=== PATIENT | female | born 1945 | race Caucasian/White ===

== ENCOUNTER 2016-12-08 12:58 | Inpatient (IN) | payer MEDICARE, OTHER ==
[~2016-12-08] VITALS: Ht 167.6 cm; Wt 65.8 kg
[~2016-12-08 12:58] MED LIST: ALBU18HF2 IH; AMLO10TA2 PO; CHLO50TA24 PO; DIPH1TAB28 PO; DONE10TA44 PO; DULO60CA63 PO; GUAI480S10 PO; IMIP50TA7 PO; LISI10TA5 PO; LOPE2TAB25 PO; NAPR500T3 PO; TIOT18CA3 IH
[2016-12-08] MEDS ORDERED: MORPHINE SULFATE INJ 2 MG/ML DISP.SYRIN IV ONE (13:30)
[2016-12-08] MEDS ORDERED: IV NS 0.9% 1,000 ML BAG IV ONE (13:30)
[2016-12-08] MEDS ORDERED: ONDANSETRON HCL/PF 4 MG/2 ML VIAL IVP ONE (13:30)
--- NOTE | 2016-12-08 13:30 | NUR ---
PATIENT BIB [facility], C/O SEVERE HEADACHE. PATIENT ALSO STATING SHE HAS BEEN NAUSEOUS AND HAVING PAIN ON HER SACRAL WOUND. PATIENT IS A/OX 4. BREATHING EVEN AND UNLABORED. VITALS STABLE. EQUAL STRENGTH BILATERALLY. NO NEUROLOGICAL DEFICITS NOTED. SAFETY AND COMFORT MEASURSES IN PLACE. AWAITING MD ORDERS.
[2016-12-08] MEDS ORDERED: MORPHINE SULFATE INJ 4 MG/ML DISP.SYRIN ONE (13:34)
[2016-12-08] MEDS ORDERED: ONDANSETRON HCL/PF 4 MG/2 ML VIAL ONE (13:34)
[2016-12-08 13:45] LABS: BASOPHILS # (AUTO) 0.2 /CMM (0.0-0.2); BASOPHILS % (AUTO) 3.1 % (0.0-2.0); EOSINOPHILS % (AUTO) 0.2 % (0.0-6.0); HEMATOCRIT 39 % (33-45); LYMPHOCYTES # (AUTO) 1.7 /CMM (0.8-4.8); LYMPHOCYTES % (AUTO) 31.3 % (20.0-44.0); MEAN CORPUSCULAR HEMOGLOBIN 32 PG (26.0-33.0); MEAN CORPUSCULAR HGB CONC 34 g/dl (31.0-36.0); MEAN CORPUSCULAR VOLUME 95 fL (82-100); MONOCYTES # (AUTO) 0.5 /CMM (0.1-1.30); MONOCYTES % (AUTO) 9.2 % (2.0-12.0); NEUTROPHILS % (AUTO) 56.2 % (43.0-81.0); PLATELET COUNT (AUTO) 185 /CMM (150-450); RDW COEFFICIENT OF VARIATION 13.5 (11.5-15.0); RED BLOOD CELL COUNT(AUTO) 4.07 MIL/uL (4.0-5.2); WHITE BLOOD COUNT (AUTO) 5.4 K/uL (4.3-11.0)
--- NOTE | 2016-12-08 13:49 | NUR ---
NEW IV STARTED ON RAC, 20 G. BLOOD DRAWN AND SENT TO LAB. PATIENT MEDICATED PER MD ORDERS.
--- NOTE | 2016-12-08 13:50 | NUR ---
URINE SAMPLE COLLECTED, VERBAL ORDER FROM DR LOUIS - SHOAIB SWEET, CALLED LAB
[2016-12-08 13:54] LABS: CALCIUM, SERUM 9.1 mg/dL (8.5-10.1); CARBON DIOXIDE 33 mmol/L (21-32); CHLORIDE 100 mmol/L (98-107); CREATININE 0.7 mg/dL (0.6-1.3); GLUCOSE 89 mg/dL (74-106); POTASSIUM 3.8 mmol/L (3.5-5.1); SODIUM SERUM 138 mmol/L (136-145); UREA NITROGEN, BLOOD 24 mg/dL (7-18)
--- NOTE | 2016-12-08 14:25 | NUR ---
PATIENT TAKEN TO CT VIA STRETCHER.
--- NOTE | 2016-12-08 14:35 | NUR ---
PATIENT RETURNED BACK FROM CT.
[2016-12-08 14:45] LABS: BILIRUBIN,URINE Negative (NEGATIVE); BLOOD, URINE Negative Ery/uL (NEGATIVE); COLOR,URINE Yellow (YELLOW); KETONES,URINE Trace (NEGATIVE); LEUKOCYTE ESTERASE ,URINE Negative (NEGATIVE); NITRITE, URINE Negative (NEGATIVE); PROTEIN,URINE Negative (NEGATIVE); UGLUCOSE Negative (NEGATIVE); UROBILINOGEN,URINE 0.2 EU/dL (0.2)
[2016-12-08 14:46] LABS: APPEARANCE,URINE Hazy (CLEAR)
[2016-12-08 14:56] LABS: BACTERIA,URINE None seen /HPF (None Seen); RBC,URINE 0-3 /HPF (0-2); SQUAMOUS EPITHELIAL CELL,UR Few /HPF (None Seen)
--- NOTE | 2016-12-08 15:03 | NUR ---
PAGED DR HENDERSON
--- NOTE | 2016-12-08 15:04 | NUR ---
CALLED NURSING FAMILY MANAGER FOR M/S BED
[2016-12-08] MEDS ORDERED: IBUP-1481 PO (15:21)
[2016-12-08] MEDS ORDERED: SULF1TAB48 PO (15:21)
[2016-12-08] MEDS ORDERED: PANT40TA4 PO (15:21)
[2016-12-08] MEDS ORDERED: DULO30CA51 PO (15:21)
[2016-12-08] MEDS ORDERED: HYDR-552 PO (15:21)
[2016-12-08] MEDS ORDERED: ACID1TAB4 PO (15:21)
[2016-12-08] MEDS ORDERED: DIVA500T7 PO (15:21)
--- NOTE | 2016-12-08 17:00 | NUR ---
MS/vice president planning New admission from emergency room under the care of Dr Castillo, here for headache. Patient fully admitted, pictures taken of sacral wound and placed in chart. Dr Castillo paged for orders.
[2016-12-08 18:11] VITALS: BP 152/85
--- NOTE | 2016-12-08 18:20 | NUR ---
MS/RN End note No changes at this time, no further complaints of pain. Continue to await admitting orders from Dr Castillo. Call light within reach, bed alarm in working order. All needs attended, will endorse to night guard.
[2016-12-08 18:30] VITALS: BP 152/85
[2016-12-08] MEDS ORDERED: MORPHINE SULFATE INJ 2 MG/ML DISP.SYRIN IV PRN ×2 (18:30)
[2016-12-08] MEDS ORDERED: IV D5/ 0.9% NACL 1,000 ML IV PRN (18:30)
[2016-12-08] MEDS ORDERED: ONDANSETRON HCL/PF 4 MG/2 ML VIAL IV PRN (18:30)
[2016-12-08] MEDS ORDERED: Z GUARD REMEDY 4 OZ OINT TP PRN (18:30)
[2016-12-08] MEDS ORDERED: ACETAMINOPHEN 325 MG TABLET PO PRN (18:30)
[2016-12-08] MEDS ORDERED: PANTOPRAZOLE 40 MG VIAL IV SCH (18:30)
--- NOTE | 2016-12-08 19:30 | NUR ---
MS RN NOTES RECEIVED ON BED A/O X3,BREATHING REGULAR,NOT IN ANY FORM OF DISTRESS.DENIES HEADACHE AT THE MOMENT.DINNER FOOD BARELY TOUCH.IV SALINE LOCK PULLED OUT BY PATIENT.REFUSED RE INSERTION.FALL PRECAUTION OBSERVED.CALL LIGHT IN REACH,NEEDS ANTICIPATED.
[2016-12-08 20:00] VITALS: BP 143/76
--- NOTE | 2016-12-08 20:45 | NUR ---
MS LUIS NNOTES NEW SALINE LOCK PLACE ON RFA #22,STARTED D5NS AT 75ML/HR RATE ORDERED.
[2016-12-08 21:23] VITALS: BP 143/76
[2016-12-08] MEDS: ONDANSETRON HCL/PF 4 MG/2 ML VIAL IV PRN (22:29)
--- NOTE | 2016-12-08 22:29 | NUR ---
MS RN NOTES C/O NAUSEA,ZOFRAN 4MG IVP GIVEN ORDERED
--- NOTE | 2016-12-09 02:00 | NUR ---
MS RN NOTES SLEEPING AT THIS TIME,KEPT WARM AND COMFORTABLE.
--- NOTE | 2016-12-09 06:43 | NUR ---
MS RN NOTES DENIES HEADACHE.IVF INFUSING,ABLE TO AMBULATE WITH ASSIST TO THE TOILET,DIAPER AT NIGHT,IN NO ACUTE DISTRESS.CALL LIGHT IN REACH,NEEDS ATTENDED.WILL ENDORSE TO DAY NURSE FOR KEEGAN.
[2016-12-09 07:06] LABS: BASOPHILS % (AUTO) 0.5 % (0.0-2.0); EOSINOPHILS % (AUTO) 0.1 % (0.0-6.0); HEMATOCRIT 37 % (33-45); HEMOGLOBIN 12.7 g/dL (11.5-14.8); LYMPHOCYTES # (AUTO) 1.4 /CMM (0.8-4.8); MEAN CORPUSCULAR HEMOGLOBIN 33 PG (26.0-33.0); MEAN CORPUSCULAR HGB CONC 35 g/dl (31.0-36.0); MEAN CORPUSCULAR VOLUME 96 fL (82-100); MONOCYTES # (AUTO) 0.4 /CMM (0.1-1.30); MONOCYTES % (AUTO) 10.8 % (2.0-12.0); NEUTROPHILS # (AUTO) 2.1 /CMM (1.8-8.9); NEUTROPHILS % (AUTO) 53.6 % (43.0-81.0); PLATELET COUNT (AUTO) 143 /CMM (150-450); RED BLOOD CELL COUNT(AUTO) 3.85 MIL/uL (4.0-5.2)
[2016-12-09 07:25] LABS: CALCIUM, SERUM 8.7 mg/dL (8.5-10.1); CARBON DIOXIDE 31 mmol/L (21-32); CHLORIDE 104 mmol/L (98-107); CREATININE 0.5 mg/dL (0.6-1.3); GLUCOSE 108 mg/dL (74-106); MAGNESIUM 1.9 mg/dL (1.8-2.4); PHOSPHORUS 3.4 mg/dL (2.5-4.9); POTASSIUM 3.3 mmol/L (3.5-5.1); SODIUM SERUM 141 mmol/L (136-145); UREA NITROGEN, BLOOD 11 mg/dL (7-18)
[2016-12-09 08:00] VITALS: BP 128/69
--- NOTE | 2016-12-09 08:06 | NUR ---
MED SURGE RN: INITIAL NOTE RECEIVED PT ALERT AND ORIENTED X3. IS ON A REGULAR DIET. R FOREARM #22 RUNNING AT NS 75MH/HR. NO DISTRESS NOTED. NO SOB NOTED. ROOM AIR SATING AT 95%. RESTING COMFORTABLY IN BED. CALL LIGHT WITHIN REACH.
[2016-12-09] MEDS ORDERED: PANTOPRAZOLE 40 MG VIAL IV SCH (09:00)
[2016-12-09] MEDS: ONDANSETRON HCL/PF 4 MG/2 ML VIAL IV PRN ×2 (09:00→20:13)
[2016-12-09] MEDS: PANTOPRAZOLE 40 MG TABLET.DR PO SCH (09:00)
--- NOTE | 2016-12-09 10:30 | NUR ---
REPORT GIVEN TO LUIS WALTERS FOR CONTINUITY OF CARE.PT HAS STABLE V/S.
--- NOTE | 2016-12-09 10:35 | NUR ---
RN NOTES REPORT RECEIVED BY VIPUL SMITH FOR CONTINUITY OF CARE. PT. RECEIVED IN STABLE CONDITION WITH NO SOB OR DISTRESS NOTED. WILL CONTINUE TO MONITOR ACCORDINGLY.
[2016-12-09] MEDS ORDERED: POTASSIUM CHLORIDE 20 MEQ TAB.PRT.SR PO SCH (11:00)
[2016-12-09] MEDS: ACETAMINOPHEN 325 MG TABLET PO PRN (11:06)
--- NOTE | 2016-12-09 14:25 | NUR ---
RN NOTES PT. IS LYING DOWN IN BED WITH NO SOB OR DISTRESS NOTED.
[2016-12-09] MEDS ORDERED: HYDROMORPHONE MDV 0.5 MG in IV D5W 50 ML IV PRN (15:00)
[2016-12-09 16:15] VITALS: BP 108/68
[2016-12-09] MEDS ORDERED: HYDROMORPHONE 1 MG/1 ML DISP.SYRIN IV PRN (18:00)
[2016-12-09] MEDS ORDERED: KETOROLAC TROMETHAMINE INJ 30 MG/ML VIAL IV STA (19:36)
--- NOTE | 2016-12-09 19:50 | NUR ---
MS RN NOTE: PATIENT RESTING IN BED, NO ACUTE DISTRESS NOTED. BREATHING EVEN AND UNLABORED, NO SOB NOTED. IV TO RFA IN PLACE. PATIENT REQUESTING TO BE TRANSFERRED TO ANOTHER ROOM OR WANTS TO LEAVE AMA. INFORMED WILL TRY TO FIND A NEW ROOM SOON WE CAN. BED LOCKED AND IN LOWEST POSITION, CALL LIGHT IN REACH. WILL CONTINUE TO MONITOR.
[2016-12-09 20:00] VITALS: BP 135/87
--- NOTE | 2016-12-09 20:03 | NUR ---
RN NOTES ALL NEEDS PROVIDED, ATTENDED, AND ANTICIPATED. KEPT PT. CLEAN AND COMFORTABLE IN BED. CALL LIGHT WITHIN PATIENT REACH. WILL CONTINUE TO MONITOR ACCORDINGLY. ENDORSED TO NEXT SHIFT RN TO CONTINUE CARE.
--- NOTE | 2016-12-09 21:30 | NUR ---
MS RN NOTE: PATIENT REFUSES IV FLUIDS, EXPLAINED RISK AND BENEFITS, BUT PATIENT CONTINUES TO REFUSE. WILL TRY AGAIN LATER. WILL CONTINUE TO MONITOR.
--- NOTE | 2016-12-09 22:00 | NUR ---
MS RN NOTE: PATIENT MOVED TO ROOM 321-1, ALL BELONGINGS MOVED. BED LOCKED AND IN LOWEST POSITION, CALL LIGHT IN REACH. WILL CONTINUE TO MONITOR.
--- NOTE | 2016-12-10 03:00 | NUR ---
MS RN NOTE: PATIENT TO HAVE MRI, ASKED PATIENT THE MRI QUESTIONNAIRE. PATIENT STATES THAT SHE BROKE HER LEFT ELBOW AND IT FIXED. SAID THAT SHE THINGS THEY USE PLASTIC. CHECKED PATIENT CHART AND H&P, NO MENTION OF LEFT ELBOW SURGERY. WILL NEED TO FOLLOW UP WITH MD OR FACILITY TO VERIFY IF PATIENT HAD SURGERY. WILL CONTINUE TO MONITOR.
--- NOTE | 2016-12-10 06:00 | NUR ---
MS RN NOTE: PATIENT RESTING IN BED, NO ACUTE DISTRESS NOTED. BREATHING EVEN AND UNLABORED, NO SOB NOTED. IV TO RFA IN PLACE. MRI QUESTIONNAIRE COMPLETED, AND SIGNED, FILED IN CHART. BED LOCKED AND IN LOWEST POSITION, CALL LIGHT IN REACH. WILL ENDORSE TO DAY NURSE TO CONTINUE WITH PLAN OF CARE.
[2016-12-10 06:59] LABS: BASOPHILS % (AUTO) 0.6 % (0.0-2.0); EOSINOPHILS % (AUTO) 0.1 % (0.0-6.0); HEMATOCRIT 37 % (33-45); HEMOGLOBIN 12.4 g/dL (11.5-14.8); LYMPHOCYTES # (AUTO) 1.5 /CMM (0.8-4.8); LYMPHOCYTES % (AUTO) 37.4 % (20.0-44.0); MEAN CORPUSCULAR HEMOGLOBIN 33 PG (26.0-33.0); MEAN CORPUSCULAR HGB CONC 34 g/dl (31.0-36.0); MEAN CORPUSCULAR VOLUME 96 fL (82-100); MONOCYTES # (AUTO) 0.4 /CMM (0.1-1.30); NEUTROPHILS % (AUTO) 50.9 % (43.0-81.0); PLATELET COUNT (AUTO) 141 /CMM (150-450); RDW COEFFICIENT OF VARIATION 13.8 (11.5-15.0); RED BLOOD CELL COUNT(AUTO) 3.84 MIL/uL (4.0-5.2)
[2016-12-10 07:29] LABS: CARBON DIOXIDE 30 mmol/L (21-32); CHLORIDE 103 mmol/L (98-107); CREATININE 0.6 mg/dL (0.6-1.3); GLUCOSE 94 mg/dL (74-106); POTASSIUM 3.6 mmol/L (3.5-5.1); SODIUM SERUM 140 mmol/L (136-145); UREA NITROGEN, BLOOD 13 mg/dL (7-18)
--- NOTE | 2016-12-10 07:52 | NUR ---
MS RN NOTE: RECEIVED PATIENT RESTING IN BED, NO ACUTE DISTRESS NOTED. BREATHING EVEN AND UNLABORED, NO SOB. PATIENT APPEARS TO BE EMOTIONAL CRYING UNCONTROLLABLY. PATIENT C/O 9/10 GENERALIZED PAIN.MANAGED WITH DILAUDID IV. IV TO RIGHT FA ORDERS FOR D5NS HOWEVER REFUSING. SAFETY MEASURES RENDERED, BED LOCKED AND IN LOWEST POSITION, CALL LIGHT IN REACH. WILL ENDORSE TO DAY NURSE TO CONTINUE WITH PLAN OF CARE.
--- NOTE | 2016-12-10 07:56 | NUR ---
WILL CONTINUE TO MONITOR PATIENT ACCORDINGLY.
[2016-12-10 08:00] VITALS: BP 161/70
[2016-12-10] MEDS: PANTOPRAZOLE 40 MG TABLET.DR PO SCH (08:31)
[2016-12-10] MEDS: HYDROMORPHONE INJ 2 MG/ML DISP.SYRIN IV PRN (08:31)
--- NOTE | 2016-12-10 09:15 | NUR ---
MS/RN NOTES PATIENT TAKEN DOWN FOR MRI OF THE HEAD.
[2016-12-10] MEDS: ACETAMINOPHEN 325 MG TABLET PO PRN ×2 (11:02→20:29)
--- NOTE | 2016-12-10 12:05 | NUR ---
MS/RN NOTES dr. Castillo at bedside discussing plan of care.
[2016-12-10] MEDS ORDERED: AMOX/CLAVULANATE 875 MG TABLET PO SCH (13:00)
--- NOTE | 2016-12-10 14:20 | NUR ---
MS/RN NOTES PATIENT OOB WITH PT, ABLE TO AMBULATE WITH WALKER .
[2016-12-10] MEDS ORDERED: LEVOFLOXACIN (500MG) 500 MG TABLET PO SCH (15:00)
[2016-12-10 16:00] VITALS: BP_SYST 112; BP_SYST 142; BP_DIAS 63; BP_DIAS 71
[2016-12-10] MEDS: AMLODIPINE BESYLATE 10 MG TABLET PO SCH (16:21)
[2016-12-10] MEDS: DIVALPROEX SODIUM 500 MG TABLET.DR PO SCH (16:21)
--- NOTE | 2016-12-10 18:39 | NUR ---
MS/RN NOTES PATIENT RESTING IN BED, APPEARS CALM AND STABLE. NO SIGNIFICANT CHANGES IN CONDITION. ALL DUE MEDICATIONS GIVEN, ALL NEEDS MET AND ATTENDED. PATIENT HAD MRI OF THE HEAD, RESULTED. DISCUSSED FINDING AND PLAN OF CARE WITH PATIENT, AGREED AND VERBALIZED UNDERSTANDING. WILL ENDORSE CARE TO INTERNATIONAL MARKETING EXECUTIVE FOR KEEGAN.
--- NOTE | 2016-12-10 19:15 | NUR ---
RN OPEN NOTES RECEIVED PATIENT AWAKE IN BED. A/O X3. NO SIGNS OF DISTRESS OR DISCOMFORT. BREATHING EVEN AND UNLABORED. IV ACCESS IN RFA PATENT AND INTACT, NO SIGNS OF REDNESS OR INFILTRATION. PATIENT REFUSING IVF AT THIS TIME. BED IN LOW LOCKED POSITION WITH SIDE RAILS X2. CALL LIGHT WITHIN REACH. WILL CONTINUE TO MONITOR.
[2016-12-10 20:00] VITALS: BP 127/77
--- NOTE | 2016-12-10 20:29 | NUR ---
RN NOTES ADMINISTERED TYLENOL 650MG ORDERED FOR HEADACHE. WILL CONTINUE TO MONITOR.
[2016-12-10] MEDS: IBUPROFEN 400 MG TABLET PO SCH (21:08)
[2016-12-10] MEDS ORDERED: DONEPEZIL 5 MG TABLET PO SCH (22:00)
[2016-12-11] MEDS: HYDROMORPHONE INJ 2 MG/ML DISP.SYRIN IV PRN (03:32)
--- NOTE | 2016-12-11 03:32 | NUR ---
RN NOTES ADMINISTERED DILAUDID 0.5MG ORDERED FOR LOWER BACK PAIN. VSS. WILL CONTINUE TO MONITOR.
[2016-12-11] MEDS: IBUPROFEN 400 MG TABLET PO SCH (05:25)
--- NOTE | 2016-12-11 06:51 | NUR ---
RN CLOSING NOTES PATIENT RESTING IN BED, EASILY AROUSABLE TO NAME. A/O X3. NO SIGNS OF DISTRESS OR DISCOMFORT. BREATHING EVEN AND UNLABORED. IV ACCESS IN RFA PATENT AND INTACT, NO SIGNS OF REDNESS OR INFILTRATION.ALL NEEDS MET. NO SIGNIFICANT CHANGES THROUGH THE NIGHT. BED IN LOW LOCKED POSITION WITH SIDE RAILS X2. CALL LIGHT WITHIN REACH. WILL ENDORSE TO AM SHIFT FOR KEEGAN.
--- NOTE | 2016-12-11 07:15 | NUR ---
RN NOTES PT IS IN BED, AWAKE AND RESTING COMFORTABLY. PT ON RA, NO SOB OR SIGNS OF DISTRESS NOTED. IV ON RFA INTACT AND PATENT. SAFETY MEASURES ARE IN PLACE, CALL LIGHT IS IN REACH. WILL CONTINUE TO MONITOR.
[2016-12-11] MEDS ORDERED: PANTOPRAZOLE 40 MG TABLET.DR PO SCH (07:30)
[2016-12-11 08:00] VITALS: BP 126/72
[2016-12-11 08:11] VITALS: BP 126/72
[2016-12-11] MEDS: AMLODIPINE BESYLATE 10 MG TABLET PO SCH (08:11)
[2016-12-11] MEDS: DIVALPROEX SODIUM 500 MG TABLET.DR PO SCH (08:11)
[2016-12-11] MEDS: PANTOPRAZOLE 40 MG TABLET.DR PO SCH (08:11)
[2016-12-11] MEDS ORDERED: ACIDOPHILUS/BULGARICUS 1 EACH TAB.CHEW PO SCH (09:00)
[2016-12-11] MEDS ORDERED: SULFAMETH/TRIMETH 800/160 MG 1 UDTAB TABLET PO SCH (09:00)
[2016-12-11] MEDS ORDERED: DULOXETINE HCL 30 MG CAPSULE.DR PO SCH (09:00)
[2016-12-11] MEDS ORDERED: HYDROCODONE/APAP 5/325MG 1 EACH TABLET PO SCH (09:30)
[2016-12-11] MEDS ORDERED: chlorproMAZINE HCL 25 MG TABLET PO SCH (10:30)
--- NOTE | 2016-12-11 11:09 | NUR ---
RN NOTES PT WAS DISCHARGED TO [facility] IN STABLE CONDITION, ACCOMPANIED BY A STAFF MEMBER OF [facility] (SUSANNE). PT WAS GIVEN DISCHARGE INFORMATION AND NEW PRESCRIPTION. PT STATED SHE WOULD FOLLOW UP WITH HER MD NEXT WEEK. PT SIGNED BELONGINGS LIST AND DISCHARGE PAPER. IV AND ID BAND WERE REMOVED. ALL MEDS WERE GIVEN ORDERED.
[2016-12-12] MEDS ORDERED: SULFAMETH/TRIMETH 800/160 MG 1 UDTAB TABLET PO SCH (09:00)
== END 2016-12-11 11:00 | DRG 153 ==
LOC: ER 13:02 → MED 16:37
PROVIDERS: ADMIT Legal Medicine; ATTEND Legal Medicine
DX: J01.30 Acute sphenoidal sinusitis, unspecified (principal); J44.9 Chronic obstructive pulmonary disease, unspecified; F03.90 Unspecified dementia, unspecified severity, without behavioral disturbance, psychotic disturbance, mood disturbance, and anxiety; G43.909 Migraine, unspecified, not intractable, without status migrainosus; I10 Essential (primary) hypertension; F31.9 Bipolar disorder, unspecified; G89.4 Chronic pain syndrome; F17.200 Nicotine dependence, unspecified, uncomplicated; Z86.73 Personal history of transient ischemic attack (TIA), and cerebral infarction without residual deficits
CPT/HCPCS: 36415; 70450-TC; 70551-TC; 80048-TC; 81000-TC; 83735-TC; 84100-TC; 85025-TC; 85652-TC; 87081-TC; A4606; J1170; J1885; J2270; J2405; J7030; J7042; J7060; Z7610